=== PATIENT | female | born 1955 | race Caucasian/White ===

== ENCOUNTER 2018-02-28 14:02 | Emergency (ER) | payer BC ==
--- NOTE | 2018-02-28 15:29 | RAD REPORT ---
EXAM DESCRIPTION: RAD - Chest Single View - 02/28/2018 3:02 pm CLINICAL HISTORY: Chest pain COMPARISON: None. TECHNIQUE: AP portable chest image was obtained 1456 hours . FINDINGS: Lungs are clear. Heart and vasculature are normal. No measurable pleural effusion and no p neumothorax. No acute bony abnormality seen. No acute aortic findings suspected. IMPRESSION: No acute cardiopulmonary process.
[2018-02-28] MEDS ORDERED: NA CHLORIDE 0.9% 1,000 ML ONE (15:38)
[2018-02-28] MEDS ORDERED: ASPIRIN 81 MG CHEWABLE TABLET ONE (15:38)
--- NOTE | 2018-02-28 15:44 | EKG ---
Test Date: 2018-02-28 Test Time: 14:46:13 Dressmaker Helper: SKYE MEASUREMENT RESULTS: Intervals: Rate: 73 UT: 160 QRSD: 90 QT: 382 QTc: 420 [place]: P: 72 UT: 160 QRS: 59 T: 47 INTERPRETIVE STATEMENTS: Normal sinus rhythm Normal ECG No previous ECG available for comparison Electronically Signed On 02-28-18 15:43:18 CDT by Adriano Barlow
[2018-02-28 15:52] LABS: Absolute Lymphocytes (CBC) 1.1 K/uL (0.7-4.9); Absolute Monocytes 0.5 K/uL (0.1-1.3); Absolute Neutrophil 5.1 K/uL (1.8-8.0); Basophils % 0.5 % (0-1.3); Eosinophils % 3.1 % (0-4.4); Hematocrit 37.3 % (36.0-45.0); Lymphocytes % 16.2 % (15.3-44.8); MCH 32.5 pg (27.0-35.0); MCV 95.9 fL (80-100); MPV 8.2 fL (7.6-11.3); Monocytes % 6.9 % (3.3-12.3); RBC Red Blood Cell Count 3.89 M/uL (3.86-4.86)
[2018-02-28 15:58] LABS: Protime INR 0.97
[2018-02-28] MEDS ORDERED: PANTOPRAZOLE 40 MG INJ ONE (16:03)
[2018-02-28 16:11] LABS: ALT/SGPT 36 U/L (12-78); AST/SGOT 26 U/L (15-37); Albumin 3.7 g/dL (3.4-5.0); Alkaline Phosphatase 73 U/L (45-117); BUN Blood Urea Nitrogen 13 mg/dL (7-18); Bicarbonate 27 mmol/L (21-32); Bilirubin Direct < 0.1 mg/dL (0-0.2); Bilirubin Total 0.1 mg/dL (0.2-1.0); Glucose Level 111 mg/dL (74-106); Lipase 104 U/L (73-393); Magnesium 2.4 mg/dL (1.8-2.4); NT PRO-BNP 118 pg/mL (<125); Protein, Total 6.5 g/dL (6.4-8.2); Sodium Level 142 mmol/L (136-145); Thyroid Stimulating Hormone 0.039 uIU/mL (0.360-3.740); Troponin (Emerg Dept Use Only) < 0.02 ng/mL (0.0-0.045)
--- NOTE | 2018-02-28 16:42 | RAD REPORT ---
EXAM DESCRIPTION: CT - Chest For Pe Angio - 02/28/2018 4:31 pm CLINICAL HISTORY: Chest pain. CHEST PAIN COMPARISON: No comparisons TECHNIQUE: CT angiogram of the pulmonary arteries was performed with MIP. All CT scans are performed using dose optimization technique as appropriate and may include automated exposure control or mA/KV adjustment according to patient size. FINDINGS: No evidence of pulmonary thromboembolism. No acute aortic finding demonstrated. Mild ground-glass opacities are present bilaterally. No significant pericardial or pleural fluid. No concerning bony finding. The esophagus appears thickened particularly in the mid and lower esophag us. IMPRESSION: No evidence of pulmonary thromboembolism. Diffuse esophageal thickening is present particularly in the mid in the lower esophagus may indicate esophagitis. Consider upper endoscopy followup assessment. Bilateral mild nonspecific ground-glass opacities may be related to alveolitis or interstitial edema.
--- NOTE | 2018-02-28 17:34 | ER ---
Nurse's Notes [facility] Name: Noé Chavez Age: 63 yrs Sex: Female : 1955 Arrival Date: 02/28/2018 Time: 14:06 Bed 16 Private MD: None, None Diagnosis: Functional dyspepsia;Chest pain, unspecified;Gastro-esophageal reflux disease with esophagitis;Pneumonia due to other specified bacteria Presentation: 02/28 14:12 Presenting complaint: Patient states: "I've had like this heart burn for the past 4-5 ss days and increased belching. The only way I can explain it is like if you take some pills and they get stuck. It hurts to swallow. It's not a heart attack.". Transition of care: patient was not received from another setting of care. Onset of symptoms was February 24, 2018. Risk Assessment: Do you want to hurt yourself or someone else? Patient reports no desire to harm self or others. Initial Sepsis Screen: Does the patient meet any 2 criteria? No. Patient's initial sepsis screen is negative. Does the patient have a suspected source of infection? No. Patient's initial sepsis screen is negative. Care prior to arrival: None. 14:12 Method Of Arrival: Ambulatory ss 14:12 Acuity: [place] 3 ss Triage Assessment: 15:42 General: Appears in no apparent distress. comfortable, well groomed, well nourished, ls4 Behavior is calm, cooperative. Pain: Complains of pain in xyphoid area and mid-sternal area Pain currently is 5 out of 10 on a pain scale. Quality of pain is described as pt describes it as a "feeling that something is stuck in my throat". Neuro: No deficits noted. Cardiovascular: No deficits noted. Rhythm is regular. Respiratory: No deficits noted. Historical: - Allergies: 14:15 No Known Allergies; ss - Home Meds: 14:15 Effexor Oral 75 mg daily [Active]; [place] Thyroid Oral [Active]; hormone replacement ss [Active]; - PMHx: 14:15 Hypothyroidism; ss - Immunization history:: Adult Immunizations unknown. - Social history:: Smoking status: Patient/guardian denies using tobacco. - Ebola Screening: : Patient denies exposure to infectious person Patient denies travel to an Ebola-affected area in the 21 days before illness onset. - Family history:: not pertinent. Screenin:39 Abuse screen: Denies threats or abuse. Denies injuries from another. Nutritional ls4 screening: No deficits noted. Tuberculosis screening: No symptoms or risk factors identified. Fall Risk None identified. Assessment: 15:00 General: Appears in no apparent distress. Behavior is calm, cooperative. Pain: Pain hb currently is 0 out of 10 on a pain scale. at worst was 5 out of 10 on a pain scale. Neuro: Level of Consciousness is awake, alert, obeys commands, Oriented to person, place, time, situation. Cardiovascular: Capillary refill < 3 seconds Patient's skin is warm and dry. Respiratory: Airway is patent Trachea midline Respiratory effort is even, unlabored, Respiratory pattern is regular, symmetrical, Breath sounds are clear bilaterally. GI: No signs and/or symptoms were reported involving the gastrointestinal system. : No signs and/or symptoms were reported regarding the genitourinary system. EENT: No signs and/or symptoms were reported regarding the EENT system. Derm: Skin is intact, is healthy with good turgor, Skin is pink, warm \\T\\ dry. 15:44 Pain: Pain does not radiate. Pain began 2-3 days ago. ls4 16:15 Reassessment: Patient appears in no apparent distress at this time. No changes from hb previously documented assessment. Patient and/or family updated on plan of care and expected duration. Pain level reassessed. Patient is alert, oriented x 3, equal unlabored respirations, skin warm/dry/pink. 16:32 General: Appears in no apparent distress. well developed, Behavior is calm, ls4 cooperative. Neuro: No deficits noted. Cardiovascular: No deficits noted. Respiratory: No deficits noted. GI: GI: Reports feeling that something is stuck in her throat. Musculoskeletal: No deficits noted. No signs and/or symptoms reported regarding the musculoskeletal system. 17:30 Reassessment: Patient appears in no apparent distress at this time. No changes from hb previously documented assessment. Patient and/or family updated on plan of care and expected duration. Pain level reassessed. Patient is alert, oriented x 3, equal unlabored respirations, skin warm/dry/pink. Vital Signs: 14:15 BP 157 / 94; Pulse 84; Resp 16; Temp 97.4(TE); Pulse Ox 98% on R/A; Weight 68.04 kg; ss Height 5 ft. 9 in. (175.26 cm); Pain 0/10; 16:34 BP 126 / 73; Pulse 78; Resp 16; Pulse Ox 99% on R/A; Pain 0/10; ls4 18:18 BP 112 / 74; Pulse 81; Resp 16; Temp 98.4; Pulse Ox 99% ; Pain 0/10; ls4 14:15 Body Mass Index 22.15 (68.04 kg, 175.26 cm) ED Course: 14:06 Patient arrived in ED. sb2 14:07 None, None is Private Physician. sb2 14:13 Triage completed. ss 14:15 Arm band placed on right wrist. ss 14:35 Patient has correct armband on for positive identification. Bed in low position. Call ls4 light in reach. Side rails up X2. hot repairman on. Pulse ox on. NIBP on. 14:35 Noise minimized. Lights dimmed. Warm blanket given. Verbal reassurance given. ls4 14:35 No provider procedures requiring assistance completed. Initial lab(s) drawn, by me, ls4 sent to lab. Inserted saline lock: 20 gauge in left antecubital area, using aseptic technique. Blood collected. Patient maintains SpO2 saturation greater than 95% on room air. 14:36 Radhames Sepulveda MD is Attending Physician. aga 14:57 X-ray completed. Portable x-ray completed in exam room. Patient tolerated procedure ls3 well. 15:01 EKG done, by strain technician. reviewed by Radhames Sepulveda MD. at1 15:02 XRAY Chest (1 view) In Process Unspecified. EDMS 16:03 Kenia Ojeda, RN is Primary Nurse. hb 16:11 Radiology exam delayed due to lab results not completed at this time. (BUN/Creatinine). cw1 16:[address] cw1 16:31 CT Chest For PE Angio In Process Unspecified. EDMS 17:08 Basic Metabolic Panel Sent. hb 17:08 CBC with Diff Sent. hb 17:08 LFT's Sent. hb 17:33 Bishop Brady MD is Referral Physician. aga 17:33 Jules Singh MD is Referral Physician. aga 18:00 Second set of blood cultures drawn by me, by venipuncture 23G to right ac. dh3 18:17 IV discontinued, intact, bleeding controlled, No redness/swelling at site. Pressure ls4 dressing applied. Administered Medications: 15:20 Drug: NS 0.9% 1000 ml Route: IV; Rate: 125 ml/hr; Site: left antecubital; ls4 18:21 Follow up: IV Status: Completed infusion; IV Intake: 375ml ls4 15:30 Drug: Aspirin Chewable Tablet 162 mg Route: PO; ls4 16:12 Follow up: Response: No adverse reaction ls4 16:00 Drug: ProTONIX 40 mg Route: IVP; Site: left antecubital; ls4 16:44 Follow up: Response: No adverse reaction; No change in condition ls4 17:58 Drug: Zithromax 500 mg Route: PO; ls4 18:16 Follow up: Response: No adverse reaction ls4 17:59 Not Given (Duplicate Order): Rocephin - (cefTRIAXone) 1 grams IVPB once over 30 mins; ls4 (mix in 50 mL NS) 18:01 Drug: Rocephin 1 grams Route: IV; Rate: calculated rate; Site: left antecubital; ls4 18:15 Follow up: Response: No adverse reaction ls4 18:20 Follow up: IV Status: Completed infusion; IV Intake: 3ml ls4 Intake: 18:20 IV: 3ml; Total: 3ml. ls4 18:21 IV: 375ml; Total: 378ml. ls4 Outcome: 14:35 Condition: stable ls4 17:34 Discharge ordered by . aga 18:17 Discharged to home ambulatory. ls4 18:17 Discharge instructions given to patient, Instructed on discharge instructions, follow up and referral plans. no drinking with medication, no driving heavy equipment, medication usage, Demonstrated understanding of instructions, follow-up care, medications, Prescriptions given X 2. 18:33 Patient left the ED. Signatures: Dispatcher [employer] EDRadhames Brush MD MD cha Smirch, Shelby, RN RN ss Woodley, Crystal cw1 Leeann Martinez, master yacht EKG Tat1 Kenia Ojeda RN RN Dory Lepe dh3 Keren Tucker sb2 Elizabeth Arora ls3 Aylin Shah RN RN ls4 Corrections: (The following items were deleted from the chart) 18:20 18:04 IV Intake: 3ml ls4 ls4
--- NOTE | 2018-02-28 17:35 | EDPHYS ---
Physician Documentation [facility] Name: Noé Chavez Age: 63 yrs Sex: Female : 1955 Arrival Date: 02/28/2018 Time: 14:06 Bed 16 Private MD: None, None ED Physician Radhames Sepulveda HPI: 02/28 15:35 This 63 yrs old Female presents to ER via Ambulatory with complaints of Chest aga Pressure. 15:35 The patient or guardian reports chest pain that is located primarily in the anterior aga chest wall. Onset: 4 day(s) ago. The pain does not radiate. Associated signs and symptoms: Pertinent positives: dysphagia. The chest pain is described as dysphagia. Severity of pain: At its worst the pain was mild in the emergency department the pain is unchanged. The patient has not experienced similar symptoms in the past. Historical: - Allergies: 14:15 No Known Allergies; ss - Home Meds: 14:15 Effexor Oral 75 mg daily [Active]; [place] Thyroid Oral [Active]; hormone replacement ss [Active]; - PMHx: 14:15 Hypothyroidism; ss - Immunization history:: Adult Immunizations unknown. - Social history:: Smoking status: Patient/guardian denies using tobacco. - Ebola Screening: : Patient denies exposure to infectious person Patient denies travel to an Ebola-affected area in the 21 days before illness onset. - Family history:: not pertinent. ROS: 15:35 Constitutional: Negative for fever, chills, and weight loss, Eyes: Negative for injury, aga pain, redness, and discharge, ENT: Negative for injury, pain, and discharge, Neck: Negative for injury, pain, and swelling, Cardiovascular: Negative for chest pain, palpitations, and edema, Respiratory: Negative for shortness of breath, cough, wheezing, and pleuritic chest pain, Back: Negative for injury and pain, : Negative for injury, bleeding, discharge, and swelling, MS/Extremity: Negative for injury and deformity, Skin: Negative for injury, rash, and discoloration, Neuro: Negative for headache, weakness, numbness, tingling, and seizure. 15:35 Cardiovascular: Positive for chest pain, of the . 15:35 Abdomen/GI: Positive for Exam: 15:35 Constitutional: This is a well developed, well nourished patient who is awake, alert, aga and in no acute distress. Head/Face: Normocephalic, atraumatic. Eyes: Pupils equal round and reactive to light, extra-ocular motions intact. Lids and lashes normal. Conjunctiva and sclera are non-icteric and not injected. Cornea within normal limits. Periorbital areas with no swelling, redness, or edema. ENT: Nares patent. No nasal discharge, no septal abnormalities noted. Tympanic membranes are normal and external auditory canals are clear. Oropharynx with no redness, swelling, or masses, exudates, or evidence of obstruction, uvula midline. Mucous membranes moist. Neck: Trachea midline, no thyromegaly or masses palpated, and no cervical lymphadenopathy. Supple, full range of motion without nuchal rigidity, or vertebral point tenderness. No Meningismus. Chest/axilla: Normal chest wall appearance and motion. Nontender with no deformity. No lesions are appreciated. Cardiovascular: Regular rate and rhythm with a normal S1 and S2. No gallops, murmurs, or rubs. Normal PMI, no JVD. No pulse deficits. Respiratory: Lungs have equal breath sounds bilaterally, clear to auscultation and percussion. No rales, rhonchi or wheezes noted. No increased work of breathing, no retractions or nasal flaring. Abdomen/GI: Soft, non-tender, with normal bowel sounds. No distension or tympany. No guarding or rebound. No evidence of tenderness throughout. Back: No spinal tenderness. No costovertebral tenderness. Full range of motion. Female : Normal external genitalia. Skin: Warm, dry with normal turgor. Normal color with no rashes, no lesions, and no evidence of cellulitis. MS/ Extremity: Pulses equal, no cyanosis. Neurovascular intact. Full, normal range of motion. Neuro: Awake and alert, GCS 15, oriented to person, place, time, and situation. Cranial nerves II-XII grossly intact. Motor strength 5/5 in all extremities. Sensory grossly intact. Cerebellar exam normal. Normal gait. Psych: Awake, alert, with orientation to person, place and time. Behavior, mood, and affect are within normal limits. 15:35 Musculoskeletal/extremity: DVT Exam: No signs of deep vein thrombosis. no pain, no swelling, no tenderness, negative Homans' sign noted on exam, no appreciated bluish discoloration, no erythema, no increased warmth. Vital Signs: 14:15 BP 157 / 94; Pulse 84; Resp 16; Temp 97.4(TE); Pulse Ox 98% on R/A; Weight 68.04 kg; ss Height 5 ft. 9 in. (175.26 cm); Pain 0/10; 16:34 BP 126 / 73; Pulse 78; Resp 16; Pulse Ox 99% on R/A; Pain 0/10; ls4 18:18 BP 112 / 74; Pulse 81; Resp 16; Temp 98.4; Pulse Ox 99% ; Pain 0/10; ls4 14:15 Body Mass Index 22.15 (68.04 kg, 175.26 cm) ss MDM: 14:36 Patient medically screened. [facility] 15:38 Data reviewed: vital signs, nurses notes, lab test result(s), EKG, radiologic studies. [facility] 02/28 14:39 Order name: Basic Metabolic Panel [facility] 02/28 14:39 Order name: CBC with Diff [facility] 02/28 14:39 Order name: LFT's [facility] 02/28 14:39 Order name: Magnesium; Complete Time: 17:30 [facility] 02/28 14:39 Order name: NT PRO-BNP; Complete Time: 17:30 [facility] 02/28 14:39 Order name: PT-INR; Complete Time: 17:30 [facility] 02/28 14:39 Order name: Troponin (emerg Dept Use Only); Complete Time: 17:30 [facility] 02/28 14:39 Order name: Lipase; Complete Time: 17:30 [facility] 02/28 14:39 Order name: Urine Culture [facility] 02/28 14:40 Order name: Basic Metabolic Panel; Complete Time: 17:30 [facility] 02/28 14:40 Order name: CBC with Automated Diff; Complete Time: 17:30 [facility] 02/28 14:40 Order name: Liver (Hepatic) Function; Complete Time: 17:30 [facility] 02/28 14:40 Order name: D-Dimer; Complete Time: 17:30 [facility] 02/28 14:40 Order name: TSH; Complete Time: 17:30 [facility] 02/28 14:18 Order name: EKG; Complete Time: 14:18 02/28 14:18 Order name: EKG - Nurse/Tech; Complete Time: 16:04 02/28 14:39 Order name: XRAY Chest (1 view); Complete Time: 15:32 [facility] 02/28 14:39 Order name: Cardiac monitoring; Complete Time: 16:04 [facility] 02/28 14:39 Order name: IV Saline Lock; Complete Time: 16:03 [facility] 02/28 14:39 Order name: Labs collected and sent; Complete Time: 16:04 [facility] 02/28 14:39 Order name: O2 Per Protocol; Complete Time: 16:04 [facility] 02/28 15:32 Order name: CT Chest For PE Angio; Complete Time: 17:30 [facility] 02/28 17:33 Order name: Blood Culture Adult (2) [facility] 02/28 17:48 Order name: Urine Dipstick--Ancillary (enter results) 02/28 14:39 Order name: O2 Sat Monitoring; Complete Time: 16:04 [facility] 02/28 14:39 Order name: Urine Dipstick-Ancillary (obtain specimen); Complete Time: 18:06 [facility] Administered Medications: 15:20 Drug: NS 0.9% 1000 ml Route: IV; Rate: 125 ml/hr; Site: left antecubital; ls4 18:21 Follow up: IV Status: Completed infusion; IV Intake: 375ml ls4 15:30 Drug: Aspirin Chewable Tablet 162 mg Route: PO; ls4 16:12 Follow up: Response: No adverse reaction ls4 16:00 Drug: ProTONIX 40 mg Route: IVP; Site: left antecubital; ls4 16:44 Follow up: Response: No adverse reaction; No change in condition ls4 17:58 Drug: Zithromax 500 mg Route: PO; ls4 18:16 Follow up: Response: No adverse reaction ls4 17:59 Not Given (Duplicate Order): Rocephin - (cefTRIAXone) 1 grams IVPB once over 30 mins; ls4 (mix in 50 mL NS) 18:01 Drug: Rocephin 1 grams Route: IV; Rate: calculated rate; Site: left antecubital; ls4 18:15 Follow up: Response: No adverse reaction ls4 18:20 Follow up: IV Status: Completed infusion; IV Intake: 3ml ls4 Disposition: 02/28/18 17:34 Discharged to Home. Impression: Functional dyspepsia, Chest pain, unspecified, Gastro-esophageal reflux disease with esophagitis, Pneumonia due to other specified bacteria. - Condition is Stable. - Discharge Instructions: Nonspecific Chest Pain, Dysphagia, Esophagitis, Gastroesophageal Reflux Disease, Adult, Community-Acquired Pneumonia, Adult, Nonspecific Chest Pain, [id number], Gastroesophageal Reflux Disease, Adult, Kfxs-[id number], Community-Acquired Pneumonia, Adult, [id number], Aspirin and Your Heart, Pneumonitis. - Prescriptions for Protonix 40 mg Oral Tablet, Delayed Release (E.C.) - take 1 tablet by ORAL route every 12 hours; 40 tablet. Zithromax 500 mg Oral Tablet - take 1 tablet by ORAL route once daily for 4 days; 4 tablet. - Medication Reconciliation Form, Thank You Letter, Antibiotic Education, Prescription Opioid Use form. - Follow up: Private Physician; When: 2 - 3 days; Reason: Recheck today's complaints, Continuance of care, Re-evaluation by your physician. Follow up: Bishop Brady; When: 2 - 3 days; Reason: Recheck today's complaints, Continuance of care, Re-evaluation by your physician. Follow up: Jules Singh; When: 2 - 3 days; Reason: Recheck today's complaints, Continuance of care, Re-evaluation by your physician. - Problem is new. - Symptoms have improved. Signatures: Dispatcher [employer] EDMS Radhames Sepulveda MD MD cha Smirch, Shelby, CAROL RN Kenia Ojeda, CAROL RN Aylin Murcia RN RN ls4 Corrections: (The following items were deleted from the chart) 18:22 17:34 02/28/2018 17:34 Discharged to Home. Impression: Functional dyspepsia; Chest ls4 pain, unspecified; Gastro-esophageal reflux disease with esophagitis; Pneumonia due to other specified bacteria. Condition is Stable. Discharge Instructions: Nonspecific Chest Pain, Dysphagia, Nonspecific Chest Pain, [id number], Aspirin and Your Heart. Prescriptions for Protonix 40 mg Oral Tablet - take 1 tablet by ORAL route once daily; 30 tablet. and Forms are Medication Reconciliation Form, Thank You Letter, Antibiotic Education, Prescription Opioid Use. Follow up: Private Physician; When: 2 - 3 days; Reason: Recheck today's complaints, Continuance of care, Re-evaluation by your physician. Follow up: Bishop Brady; When: 2 - 3 days; Reason: Recheck today's complaints, Continuance of care, Re-evaluation by your physician. Follow up: Jules Singh; When: 2 - 3 days; Reason: Recheck today's complaints, Continuance of care, Re-evaluation by your physician. Problem is new. Symptoms have improved. [facility] 18:33 18:22 02/28/2018 17:34 Discharged to Home. Impression: Functional dyspepsia; Chest hb pain, unspecified; Gastro-esophageal reflux disease with esophagitis; Pneumonia due to other specified bacteria. Condition is Stable. Discharge Instructions: Nonspecific Chest Pain, Dysphagia, Nonspecific Chest Pain, [id number], Aspirin and Your Heart, Esophagitis, Gastroesophageal Reflux Disease, Adult, Community-Acquired Pneumonia, Adult, Gastroesophageal Reflux Disease, Adult, [id number], Community-Acquired Pneumonia, Adult, [id number], Pneumonitis. Prescriptions for Protonix 40 mg Oral Tablet, Delayed Release (E.C.) - take 1 tablet by ORAL route every 12 hours; 40 tablet, Zithromax 500 mg Oral Tablet - take 1 tablet by ORAL route once daily for 4 days; 4 tablet. and Forms are Medication Reconciliation Form, Thank You Letter, Antibiotic Education, Prescription Opioid Use. Follow up: Private Physician; When: 2 - 3 days; Reason: Recheck today's complaints, Continuance of care, Re-evaluation by your physician. Follow up: Bishop Brady; When: 2 - 3 days; Reason: Recheck today's complaints, Continuance of care, Re-evaluation by your physician. Follow up: Jules Singh; When: 2 - 3 days; Reason: Recheck today's complaints, Continuance of care, Re-evaluation by your physician. Problem is new. Symptoms have improved. ls4
[2018-02-28] MEDS ORDERED: AZITHROMYCIN 250 MG TAB ONE (17:50)
[2018-02-28] MEDS ORDERED: CEFTRIAXONE/SWI 1gm 1 GM/10 ML SYR ONE (17:50)
[2018-02-28 18:02] LABS: Urine Blood NEGATIVE (NEG); Urine Glucose NEGATIVE (NEG); Urine Protein NEGATIVE (NEG)
== END 2018-02-28 18:33 | disposition home or self-care (01) ==
LOC: ER 14:02
DX: K21.0 Gastro-esophageal reflux disease with esophagitis (principal); K30 Functional dyspepsia; J15.8 Pneumonia due to other specified bacteria; E03.9 Hypothyroidism, unspecified
CPT/HCPCS: 36415; 71045; 71275; 80048; 80076; 81003; 83690; 83735; 83880; 84443; 84484; 85025; 85379; 85610; 87040; 87086; 87088; 93005; 96361; 96365; 96375; 99285; C9113; J0696; J7030; Q9967